=== PATIENT | female | born 1985 | race African-American/Black ===

== ENCOUNTER 2019-09-14 07:42 | Emergency (ER) | payer MEDICAID, OTHER ==
[~2019-09-14] VITALS: Ht 177.8 cm; Wt 69.9 kg
[2019-09-14] MEDS ORDERED: ONDANSETRON ODT 4 MG TAB.RAPDIS ONE (08:08)
[2019-09-14] MEDS ORDERED: HYDROCODONE/APAP 10-325 MG TABLET ONE (08:08)
--- NOTE | 2019-09-14 08:12 | NUR ---
Patient discharged to home in stable conditon. Written and verbal after care instructions given. Patient verbalizes understanding of instructions.pt not driving. pt using uber.
[2019-09-14] MEDS ORDERED: HYDROCODONE/APAP 10-325 MG TABLET PO ONE (08:15)
[2019-09-14] MEDS ORDERED: ONDANSETRON ODT 4 MG TAB.RAPDIS SL ONE (08:15)
== END 2019-09-14 08:15 | disposition home or self-care (01) ==
LOC: ER 07:42
DX: K08.89 Other specified disorders of teeth and supporting structures (principal)
CPT/HCPCS: A4663; Q0162